=== PATIENT | female | born 1985 | race Caucasian/White ===

== ENCOUNTER 2017-02-04 10:07 | Inpatient (IN) ==
[~2017-02-04 10:07] MED LIST: BUPIVACAINE 0.25% (2.5mg/ml) PF 30ml INJECTION IJ ONE; ONDANSETRON 4 MG/2 ML INJECTION IVP ONE; SALINE FLUSH 10ml SYRINGE IV ONE
[2017-02-04] MEDS ORDERED: CEFAZOLIN PREMIX (MC ONLY) 2 GM/50 ML BAG IV ONE (10:12)
[2017-02-04] MEDS ORDERED: CITRIC ACID/SODIUM CITRATE 30ml PO ONE (10:12)
[2017-02-04] MEDS ORDERED: FAMOTIDINE PB 20 MG/50 ML BAG IV ONE (10:12)
--- NOTE | 2017-02-04 10:44 | Anesthesia Preoperative Report ---
Anesthesia Epidural/Spinal Rec - Date and Time Date: 02/04/17 Preoperative Diagnosis: Previous C section Procedure: Plan: Spinal - Vital Signs /Para: G: P: - Medictaions & Allergies Inpatient Medications: Current Medications Citric Acid/Sodium Citrate (Oracit) 30 ml PO PREOP ONE Stop: 02/04/17 10:13 Cefazolin Sodium/Dextrose (Kefzol Premix ([place] Only)) 2 gm in 50 mls @ 100 mls/ hr IV PREOP ONE Stop: 02/04/17 10:41 Famotidine/Sodium Chloride (Pepcid Premix) 20 mg in 50 mls @ 100 mls/hr IV PREOP ONE Stop: 02/04/17 10:41 Lactated Ringer's (Lactated Ringers) 1,000 mls @ 150 mls/hr IV .Q6H40M GENE Allergies/Adverse Reactions: Allergies Allergy/AdvReac Type Severity Reaction Status Date / Time fentanyl Allergy Intermediate SHORTNESS Verified 08/30/16 09:20 OF BREATH morphine Allergy Intermediate ITCHING Verified 08/30/16 09:20 acetaminophen [From [place]] AdvReac Vomiting Verified 02/03/17 09:24 hydrocodone [From [place]] AdvReac Vomiting Verified 02/03/17 09:24 - Home Medications Home Medications: Home Medications Medication Instructions Recorded Confirmed Type Pnv95/Ferrous Fumarate/FA 1 tab PO DAILY #90 tab 08/30/16 02/03/17 History [ Tablet] - Medical History Neuro/Musculoskeletal: Reports: Other (Anxiety) - Surgical History Reproductive Surgery/Treatment: Reports: Section Anesthesia Reactions: None - Social History Smoking Status: Current every day smoker Second Hand Exposure: No Substance Use Type: does not use Alcohol Intake Frequency: does not drink - Pertinent Findings EKG Rhythm: Normal Sinus Rhythm - Physical Exam Respiratory Exam: lungs clear Cardiovascular Exam: regular rate and rhythm - Airway Assessment Mallampati Score: II TMD: 3 Fingerbreadths Neck Extension: good Overall Assessment: no airway concerns - ASA ASA Score: 2 - Discussion Discussion: Discussed risks/options/alternatives of anesthesia and questions answered. Patient consents. Nursing pain assessment noted. Anesthesia Discussion: spouse Attestation Statement: Prior to the delivery of any anesthetic medication, I examined the patient, developed the plan, obtained the patient's consent and discussed the risk and benefits of the procedure with the patient/guardian.
[2017-02-04] MEDS: LR 1,000 ML IV SCH ×2 (10:45→11:36)
[2017-02-04 11:18] VITALS: BMI 30.4
[2017-02-04] MEDS ORDERED: ONDANSETRON 4 MG/2 ML INJECTION ONE (12:26)
[2017-02-04] MEDS: OXYTOCIN DRIP 30 UNIT/500 ML ML IV SCH ×2 (12:34→12:59)
[2017-02-04] MEDS ORDERED: SALINE FLUSH 10ml SYRINGE ONE (13:00)
[2017-02-04] MEDS ORDERED: BUPIVACAINE 0.25% (2.5mg/ml) PF 30ml INJECTION ONE (13:12)
[2017-02-04] MEDS ORDERED: SIMETHICONE 80 MG CHEWABLE TABLET PO PRN (14:08)
[2017-02-04] MEDS ORDERED: ACETAMINOPHEN 500 MG TABLET PO PRN (14:08)
[2017-02-04] MEDS ORDERED: OXYTOCIN DRIP 30 UNIT/500 ML ML IV SCH (14:08)
[2017-02-04] MEDS ORDERED: SALINE FLUSH 10ml SYRINGE IVF PRN (14:08)
[2017-02-04] MEDS ORDERED: HYDROCORTISONE 2.5% CREAM 30gm RECTALLY PRN (14:08)
[2017-02-04] MEDS ORDERED: DiphenhydrAMINE 25 MG CAPSULE PO PRN (14:08)
[2017-02-04] MEDS ORDERED: ONDANSETRON 4 MG/2 ML INJECTION IVP PRN (14:08)
[2017-02-04] MEDS: Oxycodone/Acetaminophen 5/325 1 TAB PO PRN ×3 (14:12→22:01)
[2017-02-04] MEDS: D5LR 1,000 ML IV SCH (14:13)
[2017-02-04] MEDS ORDERED: NALOXONE 2 MG/2 ML INJECTION PFS IVP PRN (14:14)
--- NOTE | 2017-02-04 14:14 | Anesthesia Procedure Note ---
Peripheral Nerve Blockade - Procedure Physician: James Fraga MD Date: 02/04/17 Surgical Procedure: repeat Discussion: Discussed risks/options/alternatives of anesthesia and questions answered. Patient consents. Nursing pain assessment noted. Block Start: 13:35 Block Stop: 13:50 Blocked Employed: [employer] Block Indication: Post-Operative Pain Approach: Right Side Confirmed Position: Supine Patient: Consent, Risks/Benefits Discussed, Informed, Post Block Act. Discussed IV Sedation: No Initial Vital Signs: Respiratory Rate 16 02/04/17 10:11 Blood Pressure 124/80 02/04/17 10:11 Blood Pressure Mean 94 02/04/17 10:11 Post Vital Signs: Temperature 98.5 F 02/04/17 11:05 Pulse Rate 82 02/04/17 11:05 Respiratory Rate 16 02/04/17 11:05 Blood Pressure 124/80 02/04/17 11:03 Pulse Oximetry 98 02/04/17 11:05 Oxygen Delivery Method Room Air Initial Pain Pain Score: 7 Post Block Pain Score: 4 Prep: Chlorhexadine/ETOH Ultrasound Used?: Yes - Injectate Bupivacaine (%): 0.2 Bupivacaine (mL): 50 (0.25% 25 ml each side) Was Epi 1:200,000 Used?: No Injection: Injection made incrementally with constant monitoring and aspiration every ml
[2017-02-04] MEDS: HYDROMORPHONE 2 MG/ML INJECTION IVP PRN ×2 (15:02→16:56)
[2017-02-04] MEDS: IBUPROFEN 800 MG TABLET PO PRN (15:37)
--- NOTE | 2017-02-04 15:56 | Anesthesia Postoperative Note ---
- Date and Time Date: 02/04/17 Time: 15:55 - Status Patient Participated in Evaluation: Patient Participated in Person Vital Signs: Temperature 98.5 F 02/04/17 11:05 Pulse Rate 82 02/04/17 11:05 Respiratory Rate 16 02/04/17 11:05 Blood Pressure 124/80 02/04/17 11:03 Pulse Oximetry 98 02/04/17 11:05 Oxygen Delivery Method Room Air Respiratory Function: Airway Patent Cardiovascular Function: Regular Pulse EKG Rhythm: Normal Sinus Rhythm Mental Status: Alert and Oriented Pain Intensity: 2 Hydration: Taking PO Fluids, IV Infusing Complications During Recover: None Apparent - Follow-Up Instructions Instructions: Per Surgeon
[2017-02-04] MEDS ORDERED: SCOPOLAMINE 1.5 MG PATCH TD SCH (18:45)
[2017-02-04] MEDS: SIMETHICONE 80 MG CHEWABLE TABLET PO SCH ×2 (18:53→22:00)
[2017-02-05] MEDS: IBUPROFEN 800 MG TABLET PO PRN ×2 (01:54→21:23)
[2017-02-05] MEDS: D5LR 1,000 ML IV SCH (02:03)
[2017-02-05] MEDS: Oxycodone/Acetaminophen 5/325 1 TAB PO PRN ×5 (07:10→21:23)
--- NOTE | 2017-02-05 09:36 | OB/GYN Progress Note ---
OB-PP Progress Note - General POD:: POD1 - Subjective Date: 02/05/17 Pain: contolled Voiding: roberto still in place Nausea or Vomiting Present: No - Objective Vital Signs: Last Vital Signs Temp 98.3 F 02/05/17 06:00 Pulse 70 02/05/17 06:00 Resp 16 02/05/17 06:00 BP 118/70 02/05/17 06:00 Pulse Ox 95 02/05/17 06:00 Urine Output: adequate General: alert and oriented Incision: dressed Extremities: non-tender Laboratory: Laboratory Results - last 24 hr 02/04/17 02/04/17 02/04/17 10:41 10:41 16:51 WBC 7.8 11.5 H D RBC 3.87 L 3.52 L Hgb 10.2 L 9.4 L Hct 31.4 L 28.6 L MCV 81.1 81.3 MCH 26.4 26.7 MCHC 32.5 32.9 RDW Std Deviation 40.4 39.7 Plt Count 178 180 MPV 10.0 10.1 Immature Gran % (Auto) 0.4 Neut % (Auto) 74.3 H Lymph % (Auto) 18.4 L [place] % (Auto) 6.2 Eos % (Auto) 0.6 Baso % (Auto) 0.1 Neut # 5.8 Lymph # 1.4 [place] # 0.5 Eos # 0.1 Baso # 0.0 Abs Immat Gran (auto) 0.03 Blood Type A Positive Antibody Screen Negative - Assessment Assessment: Repeat C/S, Tubal Ligation - Plan Plan: routine care dc roberto today and increase activity. q&a-krb
--- NOTE | 2017-02-05 13:35 | Operative Note ---
DATE OF SURGERY: 02/04/2017 PREOPERATIVE DIAGNOSIS 1. 32-year-old white female, G4, P2, at 39.1 weeks gestational age. 2. Previous x 1. 3. Desires permanent sterilization. 4. History of severe hyperemesis and depression. POSTOPERATIVE DIAGNOSIS: Same. PROCEDURE: Repeat low transverse section and modified [place] tubal ligation. EBL: 800 ml SURGEON: James Fraga MD RIGHT OF WAY WORKER: Rao Monsivais, Sustainability Director COMPLICATIONS: None. DESCRIPTION OF PROCEDURE After adequate spina anesthesia, the patient was prepped and draped in the left lateral decubitus position. A Pfannenstiel skin incision was made with a sharp knife and carried down the fascia, which was incised transversely with the Carranza scissors. The rectus fascia was bluntly and sharply dissected off the rectus muscle. The rectus muscle was divided, and the peritoneum was isolated, elevated, entered with the Metzenbaum scissors and extended cephalad and caudad. The bladder blade was then inserted. The lower vesicouterine fold of the peritoneum was isolated and incised transversely. The bladder was bluntly dissected off the lower uterine segment. The bladder blade was reinserted. Then using a sharp knife, a transverse incision was made in the lower uterine segment. This was extended with my fingers. Male infant was delivered from the vertex position without difficulty. was bulb suctioned after delivery of the head and then again after delivery of the body. Cord was doubly clamped and cut and the was taken to the isolette where it was received by the charge nurse. Placenta was removed manually and was intact. The placenta was expressed manually and was intact. The uterus was then allowed to fall upon the external abdominal wall. The endometrial cavity was cleansed using moist lap sponges. The uterus was closed using 0-Monocryl in a running locking fashion. Hemostasis was confirmed. The bladder flap was then reapproximated with the visceral peritoneum using 3-0 Vicryl in a running nonlocking fashion. The posterior cul-de-sac was cleansed of old blood clots and the tubes and ovaries were examined and found to be normal in size, shape and appearance. Our attention was then turned to tubal ligation. The right fallopian tube was isolated and then a mid-isthmic portion of the tube was grasped with the [place] clamp, elevated and then a knuckle of the tube was ligated using 2-0 chromic. A Rekha clamp was passed through the meso of the tube and then the proximal and distal aspects of the knuckle of the tube were ligated using 2-0 silk. The knuckle of the tube was excised and sent to surgical pathology for lumen confirmation. This procedure was then repeated on the left side and hemostasis was confirmed. After hemostasis was again confirmed, the uterus was then carefully returned to the abdominal cavity. The abdomen was then closed in layers. The peritoneum was closed using 2-0 Vicryl in running nonlocking fashion. The fascia was closed using 0-Vicryl in a running nonlocking fashion bilaterally from the lateral aspects medially. Hemostasis was achieved with the subcutaneous tissue and then the skin was closed using 4-0 Vicryl in a subcutaneous manner. The patient tolerated the procedure well and went to the recovery room in stable condition. Pad, sponge and needle counts were correct and urine postop was clear and free flowing. DESIREE
[2017-02-05] MEDS: DOCUSATE CALCIUM 240 MG CAPSULE PO SCH (14:50)
[2017-02-05] MEDS: SIMETHICONE 80 MG CHEWABLE TABLET PO SCH ×2 (16:56→21:23)
--- NOTE | 2017-02-05 16:58 | Progress Note ---
OB PP Progress Note Free Text - Date Date: 02/05/17 - Progress Note Progress Note: vss af doing well much family in the room so no exam at this time. plans dc tomorrow f/u next week q&a w/ pt and
[2017-02-06 01:12] VITALS: O2SAT 98
[2017-02-06] MEDS: IBUPROFEN 800 MG TABLET PO PRN (07:46)
[2017-02-06] MEDS: DOCUSATE CALCIUM 240 MG CAPSULE PO SCH ×2 (07:47→12:45)
[2017-02-06] MEDS: Oxycodone/Acetaminophen 5/325 1 TAB PO PRN ×2 (07:47→12:48)
[2017-02-06 08:05] VITALS: BP 116/76; PULSE 69; RESP 18; TEMP 98
[2017-02-06] MEDS: SIMETHICONE 80 MG CHEWABLE TABLET PO SCH (10:18)
--- NOTE | 2017-02-06 13:06 | OB/GYN Progress Note ---
OB - PN: A/P - Plan Plan: routine postop care, discharge home Comments: Dismissal to home today, has apt for inc check RPOC - Time Spent With Patient Total time spent is greater than 50% in coordination of care (as documented) at patient's floor/unit and/or counseling patient: less than 15 minutes OB - PN: Subj Patient comments: no complaints, pain well controlled, tolerating diet [place] baby status: doing well, nursing well feeding status: breast and bottle feeding OB - PN: Obj Exam Vital signs: Temperature 98.0 F 02/06/17 07:00 Pulse Rate 69 02/06/17 07:00 Respiratory Rate 18 02/06/17 07:00 Blood Pressure 116/76 02/06/17 07:00 Pulse Oximetry 98 02/06/17 07:00 Oxygen Delivery Method Room Air - Constitutional no acute distress - Routine Abdominal Exam Present: soft, non tender Fundus: Present: firm - Wound Management Method: suture Examination: Present: clean, dry, intact - Urinary Catheter Management Urethral Cath placed during this visit: yes Urethral indwelling: No Insertion date: 02/04/17 Insertion time: 12:17 OB - PN: Obj Data - Labs CBC & Chem 7: 02/04/17 16:51
--- NOTE | 2017-02-06 13:41 | Discharge Instructions ---
Discharge Plan - Med Rec/Dispo Opal Instructions: MC Delivery with Tubal Additional Instructions: Call [facility] to schedule a follow up appointment with Dr. Fraga for Wednesday. Prescriptions: New Ibuprofen [Motrin] 800 mg PO Q8H PRN #30 tablet PRN Reason: Pain Oxycodone/APAP 5/325 [Percocet 5/325] 1 - 2 tab PO Q4H PRN #30 tablet PRN Reason: Pain Continue Pnv95/Ferrous Fumarate/FA [ Tablet] 1 tab PO DAILY #90 tab Discontinued Scopolamine [Transderm-Scop] 1 removal TD Q3D #1 - Disposition 01 Discharged Home, Self-Care
[2017-02-07] MEDS ORDERED: PRENATAL VITAMIN TABLET PO SCH (09:00)
[2017-02-07] MEDS ORDERED: SCOPOLAMINE PATCH REMOVAL TD SCH (18:45)
== END 2017-02-06 15:17 | disposition home or self-care (01) | DRG 766 ==
LOC: MC 10:07
PROVIDERS: ADMIT Obstetrics & Gynecology; ATTEND Obstetrics & Gynecology